=== PATIENT | female | born 1940 | race Caucasian/White ===

== ENCOUNTER 2017-06-14 12:50 | Emergency (ER) | payer OTHER ==
[~2017-06-14] VITALS: Ht 167.6 cm; Wt 90.7 kg
[2017-06-14 12:50] VITALS: BP_SYST 132
--- NOTE | 2017-06-14 12:50 | NUR ---
Patient triaged and placed in waiting room. VSS and patient appears in no acute distress at this time. Accompanied by SON, awaiting available bed, and MD notified of need for MSE.
--- NOTE | 2017-06-14 13:10 | NUR ---
TAKEN TO RADIOLOGY VIA WHEELCHAIR
--- NOTE | 2017-06-14 13:45 | NUR ---
RETURNED FROM RADIOLOGY VIA WHEELCHAIR TO WAITING ROOM
--- NOTE | 2017-06-14 14:40 | NUR ---
BROUGHT BACK TO BED #8 VIA WHEELCHARI, PLACED IN ROOM #8 AND REPORT GIVEN TO BATSHEVA
--- NOTE | 2017-06-14 14:45 | NUR ---
Pt brought by family members, A&Ox1, pt had mechanical fall, c/o R hip , R rib and R site of head pain 4/10, intact ROM, skin pink and warm, cap refill <3, VS WNL.
--- NOTE | 2017-06-14 14:45 | NUR ---
Dr Kwan at bedside examining patient
[2017-06-14 15:10] VITALS: BP_SYST 132
--- NOTE | 2017-06-14 15:10 | NUR ---
Patient given written and verbal discharge instructions and verbalizes understanding. ER MD discussed with patient the results and treatment provided. Patient in stable condition. ID arm band removed. Rx of Motrin given. Patient educated on pain management and to follow up with PMD in 2-3 days . Pain Scale 0/10 Opportunity for questions provided and answered.
== END 2017-06-14 15:10 | disposition home or self-care (01) ==
LOC: SED 12:50
DX: S20.211A Contusion of right front wall of thorax, initial encounter (principal); E78.00 Pure hypercholesterolemia, unspecified; I10 Essential (primary) hypertension; G30.9 Alzheimer's disease, unspecified; F02.80 Dementia in other diseases classified elsewhere, unspecified severity, without behavioral disturbance, psychotic disturbance, mood disturbance, and anxiety; Z88.6 Allergy status to analgesic agent; Z88.5 Allergy status to narcotic agent; Z90.49 Acquired absence of other specified parts of digestive tract; W18.00XA Striking against unspecified object with subsequent fall, initial encounter; Y93.89 Activity, other specified; Y92.89 Other specified places as the place of occurrence of the external cause; Y99.8 Other external cause status
CPT/HCPCS: 70450-TC; 71100; 73502; 99284